=== PATIENT | male | born 1995 | race Caucasian/White ===

== ENCOUNTER 2018-11-27 14:18 | Outpatient (CLI) | payer OTHER ==
--- NOTE | 2018-11-27 15:21 | RAD ---
CERVICAL SPINE 5 VIEWS: HISTORY: M54.2, neck pain, pinched nerve. FINDINGS: No evidence for acute fracture or dislocation. No abnormal translation between flexion and extension . No prevertebral soft tissue swelling. IMPRESSION: Unremarkable cervical spine with flexion and extension. POS: RRE
== END 2018-11-27 14:19 | disposition home or self-care (01) ==
LOC: TBSIIMAG 14:18
PROVIDERS: ATTEND Surgery
DX: M54.2 Cervicalgia (principal)
CPT/HCPCS: 72050

== ENCOUNTER 2024-02-28 11:46 | Outpatient (CLI) | payer OTHER | END 2024-02-28 11:47 | disposition home or self-care (01) | LOC: ULT 11:46 | PROVIDERS: ATTEND Nurse Practitioner Gerontology | DX: N50.9 Disorder of male genital organs, unspecified (principal); N50.3 Cyst of epididymis | CPT/HCPCS: 76870; 93976 ==